=== PATIENT | female | born 1970 | race African-American/Black ===

== ENCOUNTER 2016-05-29 16:54 | Emergency (ER) | payer MEDICAID, OTHER ==
[~2016-05-29] VITALS: Ht 160 cm; Wt 79.4 kg
[2016-05-29 17:12] VITALS: BP 168/98
== END 2016-05-29 17:41 | disposition home or self-care (01) ==
LOC: ER 17:00
DX: I10 Essential (primary) hypertension (principal); B00.1 Herpesviral vesicular dermatitis; M25.512 Pain in left shoulder; G89.29 Other chronic pain; Z76.0 Encounter for issue of repeat prescription